=== PATIENT | female | born 1960 | race Caucasian/White ===

== ENCOUNTER 2019-03-04 17:08 | Emergency (ER) | payer MEDICAID ==
[~2019-03-04] VITALS: Ht 154.9 cm; Wt 65.0 kg
[~2019-03-04 17:08] MED LIST: ARIP15TA2 PO; ASPI325T85 PO; ATOR10TA69 PO; BENGAY TOP; DEXT15DR5 EACHEYE; GABA-531 PO; GLIM4TAB2 PO; LORA1TAB PO; MECL12.584 PO; METF-416 PO; NAPR-679 PO; OLAN20TA34 PO; SERT-112 PO; TOPUD PO; TRAZ-251 PO; [UNRECOGNIZED DRUG - OTHER] EACHEYE
[2019-03-04 21:30] LABS: BASOPHILS % 0.7 % (0.0-2.0); EOSINOPHILS % 1.2 % (0.0-5.0); HEMOGLOBIN. 13.5 g/dL (12.0-16.0); LYMPHOCYTES % 32.2 % (20.0-50.0); MEAN CORPUSCULAR HEMOGLOBIN 29.1 pg (28.0-32.0); MEAN CORPUSCULAR VOLUME 86.1 fL (81.0-99.0); MEAN PLATELET VOLUME 9.4 fl (7.4-10.4); MONOCYTES % 5.8 % (2.0-8.0); NEUTROPHILS % 60.1 % (40.0-76.0); PLATELET 163 x1000/uL (130-400); RED BLOOD CELL COUNT 4.64 mill/uL (4.2-5.4); RED CELL DISTRIBUTION WIDTH 13.3 % (11.6-14.6)
[2019-03-04 21:34] LABS: CHLORIDE 106 mEq/L (98-107)
[2019-03-04 21:38] LABS: ETHANOL BLOOD < 10 mg/dL
[2019-03-04 22:45] VITALS: BP 117/55
== END 2019-03-04 23:04 | disposition home or self-care (01) ==
LOC: ER 17:08
DX: R07.89 Other chest pain (principal); E11.9 Type 2 diabetes mellitus without complications; I10 Essential (primary) hypertension; Z79.82 Long term (current) use of aspirin; Z79.899 Other long term (current) drug therapy
CPT/HCPCS: 36415; 71045; 80320; 83880; 84484; 93005; 99284; G0480

== ENCOUNTER 2020-08-22 20:49 | Emergency (ER) | payer MEDICAID ==
[~2020-08-22] VITALS: Ht 157.5 cm; Wt 55.0 kg
[~2020-08-22 20:49] MED LIST changes: +ASPI-867 PO; -ASPI325T85 PO; -GABA-531 PO; +GABA-532 PO; -GLIM4TAB2 PO; +GLIM4TAB36 PO; +MECL-217 PO; -MECL12.584 PO
[2020-08-22 21:58] LABS: BASOPHILS % 0.2 % (0.0-2.0); EOSINOPHILS % 1.3 % (0.0-5.0); HEMOGLOBIN. 12.4 g/dL (12.0-16.0); LYMPHOCYTES % 20.9 % (20.0-50.0); MEAN CORPUSCULAR HEMOGLOBIN 28.5 pg (28.0-32.0); MEAN CORPUSCULAR VOLUME 84.6 fL (81.0-99.0); MEAN PLATELET VOLUME 8.4 fl (7.4-10.4); MONOCYTES % 7.5 % (2.0-8.0); NEUTROPHILS % 70.1 % (40.0-76.0); PLATELET 294 x1000/uL (130-400); RED BLOOD CELL COUNT 4.37 mill/uL (4.2-5.4); RED CELL DISTRIBUTION WIDTH 13.6 % (11.6-14.6)
[2020-08-22 22:05] LABS: CHLORIDE 100 mEq/L (98-107)
[2020-08-22] MEDS: MORPHINE SULFATE 4 MG/ML CPJ (NOT FOR IM USE) IV PRN (23:15)
[2020-08-23] MEDS: MORPHINE SULFATE 4 MG/ML CPJ (NOT FOR IM USE) IV PRN ×2 (00:57→02:33)
[2020-08-23 06:04] VITALS: BP 140/68
== END 2020-08-23 07:30 ==
LOC: ER 20:49
DX: S52.501A Unspecified fracture of the lower end of right radius, initial encounter for closed fracture (principal); S01.511A Laceration without foreign body of lip, initial encounter; E11.65 Type 2 diabetes mellitus with hyperglycemia; E78.00 Pure hypercholesterolemia, unspecified; F03.90 Unspecified dementia, unspecified severity, without behavioral disturbance, psychotic disturbance, mood disturbance, and anxiety; F32.9 Major depressive disorder, single episode, unspecified; I10 Essential (primary) hypertension; F20.9 Schizophrenia, unspecified; F79 Unspecified intellectual disabilities; E87.1 Hypo-osmolality and hyponatremia; Z98.890 Other specified postprocedural states; W01.0XXA Fall on same level from slipping, tripping and stumbling without subsequent striking against object, initial encounter; Y93.89 Activity, other specified; Y92.128 Other place in nursing home as the place of occurrence of the external cause
CPT/HCPCS: 29125; 36415; 70450; 73110; 73200; 80048; 85025; 93005; 96374; 99285; J2270